=== PATIENT | female | born 1975 | race Two or more races ===

== ENCOUNTER 2024-11-03 16:10 | Emergency (ER) | payer MEDICAID, SELFPAY ==
[2024-11-03 16:24] VITALS: BP 136/81; PULSE 78; RESP 18; TEMP 37.2; O2SAT 97
--- NOTE | 2024-11-03 16:35 | XR_ITS ---
Examination: Lumbar spine 2 views TECHNIQUE: AP lateral lumbar spine 2 views Date and time: November 03, 2024 1649 hours INDICATIONS: Low back pain beginning one week ago. FINDINGS: Suspicious for grade 1 spondylolisthesis L5 on S1 Moderate disc narrowing L5-S1 No lumbar fracture IMPRESSION: Recommend oblique films follow-up to confirm grade 1 spondylolisthesis L5 on S1
--- NOTE | 2024-11-03 16:35 | XR_ITS ---
Examination: CT abdomen and pelvis without contrast. Coronal 3-D reconstructions. Sagittal 2-D reconstructions. Date and time of exam:November 03, 2024 1852 hours INDICATIONS: Onset left-sided abdominal pain beginning one week ago CTDI: vol (mGy): 11 DLP: (mGycm): 682 Technique: Axial images of the abdomen have been obtained, 3 mm slice thickness Intravenous contrast material has not been administered. Low dose protocols were performed. One or more of the following dose reduction techniques were used; automated exposure control, adjustment of the mA and/or KV according to patient size, use of iterative reconstruction technique. Findings: Patient's Absent gallbladder No pancreatic or adrenal mass No renal or ureteral calculi, no hydronephrosis Aorta normal size No pericecal inflammatory change No diverticulitis Hypodense right posterior pelvic partially cystic mass 4.9 cm Urinary bladder is intact IMPRESSION: No renal or ureteral calculi, no hydronephrosis No CT findings of appendicitis or bowel obstruction Posterior hypodense right pelvic mass, 4.9 cm, recommend pelvic sonography follow-up Grade 1 spondylolisthesis L5 on S1
--- NOTE | 2024-11-03 16:36 | PD.EDRME ---
Rapid Medical Screening Exam RME Arrival date/time: 11/03/24 16:10 49-year-old female with no known medical history presents to the emergency room with a chief complaint of lumbar back pain, dysuria, left-sided flank pain x 1 week I have greeted and performed a focused initial assessment of this patient. A comprehensive ED assessment and evaluation of the patient, analysis of all test results, and completion of the medical decision making process will be conducted by additional ED providers. Chief Complaint: Back Pain/Injury Time Seen by Provider: 11/03/24 16:19 Vital signs: Vital Signs Temperature 99.0 F 11/03/24 16:24 Pulse Rate 78 11/03/24 16:24 Respiratory Rate 18 11/03/24 16:24 Blood Pressure 136/81 H 11/03/24 16:24 Pulse Oximetry (%) 97 11/03/24 16:24 Oxygen Delivery Method Room Air 11/03/24 16:24 Vital signs reviewed by provider: Yes
[2024-11-03 17:18] LABS: Collection Type, Urine Clean Catch; RBC,Urine 0 /hpf (0-3)
[2024-11-03 17:38] LABS: Bilirubin,Urine Negative (Negative); Blood,Urine Negative (Negative); Clarity,Urine Clear (Clear/Hazy); Color,Urine Colorless (Lt Yel-Yel); Culture Indicated,Urine Not Indicated; Glucose, Urine Negative (Negative); Ketones,Urine Negative (Negative); Leukocyte Esterase,Urine Negative (Negative); Nitrite,Urine Negative (Negative); PH,Urine 6.5 (5.0-7.0); Protein,Urine Negative (Neg - Trace); Specific Gravity,Urine 1.011 (1.001-1.035); Squamous Epithelial Cell,Urine 2 /hpf (0-5); Urobilinogen,Urine Negative mg/dL (0.0-1.0); WBC,Urine 1 /hpf (0-5)
[2024-11-03 17:49] LABS: HCG Qualitative,Urine Negative
[2024-11-03 18:16] LABS: Basophils # (Auto) 0.1 Thou/mm3 (0.0-0.2); Basophils % (Auto) 1 % (0-2.5); Eosinophils # (Auto) 0.2 Thou/mm3 (0.0-0.5); Eosinophils % (Auto) 2 % (0-10); Hematocrit 35.8 % (36.0-46.0); Hemoglobin 11.5 g/dL (12.0-16.0); Immature Granulocytes Auto 0.04 Thou/mm3 (0.00-0.00); Lymphocytes # (Auto) 2.9 Thou/mm3 (1.0-4.8); Lymphocytes % (Auto) 31 % (10-50); Mean Corpuscular HGB Conc 32.1 g/dl (31.0-37.0); Mean Corpuscular Hemoglobin 27.8 pg (25.0-35.0); Mean Corpuscular Volume 87 fL (80-100); Monocytes # (Auto) 0.6 Thou/mm3 (0.0-0.8); Monocytes % (Auto) 6 % (0-12); Neutrophils # (Auto) 5.6 Thou/mm3 (1.8-7.7); Neutrophils % (Auto) 60 % (37-80); Nucleated Red Blood Cell # 0.00 Thou/mm3 (0.00-0.00); Nucleated Red Blood Cell % 0 /100 WBC (0); Platelet Count 293 Thou/mm3 (140-440); RDW Standard Deviation 43.5 fL (36.4-46.3); Red Blood Count 4.14 Miln/mm3 (4.00-5.20); White Blood Count 9.4 Thou/mm3 (3.6-11.0)
[2024-11-03 18:29] LABS: Alanine Aminotransferase 15 U/L (10-49); Albumin, Serum 4.6 gm/dL (3.5-5.0); Albumin/Globulin Ratio 1.6 (1.2-2.2); Alkaline Phosphatase 146 U/L (46-116); Anion Gap 9 (7-16); Aspartate Amino Transferase 21 U/L (0-34); BUN/Creatinine Ratio 15 Ratio (12-20); Bilirubin,Total 0.2 mg/dL (0.3-1.2); Blood Urea Nitrogen 12 mg/dL (9-23); Calcium 9.8 mg/dL (8.3-10.6); Calcium (Corrected) 9.8 mg/dL (8.5-10.1); Carbon Dioxide 25.0 mMol/L (20.0-31.0); Chloride 106 mMol/L (98-107); Creatinine (Component) 0.8 mg/dL (0.6-1.3); Globulin 2.9 gm/dL (2.3-3.5); Glucose 118 mg/dL (74-106); Lipase 50 U/L (12-53); Osmolality,Calculated 280 (275-295); Potassium 3.6 mMol/L (3.4-5.1); Sodium 140 mMol/L (136-145); Total Protein 7.5 gm/dL (5.7-8.2); eGFR > 60 See Note
--- NOTE | 2024-11-03 19:15 | PD.EDBACK ---
ED Back Injury Pain RME/HPI General Chief Complaint: Back Pain/Injury Stated Complaint: LEFT FLANK PAIN Time Seen by Provider: 11/03/24 16:19 Arrival date/time: 11/03/24 16:10 RME / HPI RME / HPI Narrative: 11/03/24 16:10 49-year-old female with no known medical history presents to the emergency room with a chief complaint of lumbar back pain, dysuria, left-sided flank pain x 1 week I have greeted and performed a focused initial assessment of this patient. A comprehensive ED assessment and evaluation of the patient, analysis of all test results, and completion of the medical decision making process will be conducted by additional ED providers. See [facility] for HPI documentation. Related Data Previous Rx's ?Medication ?Instructions ?Recorded ibuprofen 800 mg tablet 800 mg PO TID PRN pain #30 tabs 10/21/23 acetaminophen 300 mg-codeine 30 mg 2 tab PO Q8H PRN pain #20 tabs 11/03/24 tablet cyclobenzaprine 10 mg tablet 10 mg PO Q8H PRN muscle spasm #30 11/03/24 tabs ibuprofen 800 mg tablet 800 mg PO Q8H PRN pain #30 tabs 11/03/24 lidocaine 5 % topical patch 2 patch topical QDAY PRN pain #30 11/03/24 (Lidoderm) ea Allergies Allergy/AdvReac Type Severity Reaction Status Date / Time No Known Allergies Allergy Verified 02/08/18 11:38 Review of Systems Review of Systems Systems Reviewed: All systems reviewed, normal except as documented Past Medical History Social History SMOKING STATUS: Never smoker ED Exam Narrative Physical exam: See [facility] for physical exam documentation. Course Quality Measures none Orders Category Date Time Status CT abdomen pelvis wo con Stat Exams 11/03/24 16:35 Completed XR lumbar spine 2-3V Stat Exams 11/03/24 16:35 Completed CBC Stat Lab 11/03/24 17:45 Completed CMP [Comprehensive Metabolic Panel] Stat Lab 11/03/24 17:45 Completed HCG Qualitative,Urine Stat Lab 11/03/24 17:08 Completed Lipase Stat Lab 11/03/24 17:45 Completed UA, C/S IF [Urinalysis, C/S if Indicated] Stat Lab 11/03/24 17:08 Completed ACETAMINOPHEN w/COD 300-30 [Tylenol w/Cod #3] Med 11/03/24 20:30 Discontinued 2 tab PO X1 ONE Vital Signs Vital signs: Vital Signs Temperature 99.0 F 11/03/24 16:24 Pulse Rate 78 11/03/24 16:24 Respiratory Rate 18 11/03/24 16:24 Blood Pressure 136/81 H 11/03/24 16:24 Pulse Oximetry (%) 97 11/03/24 16:24 Oxygen Delivery Method Room Air 11/03/24 16:24 Back Pain / Injury MDM Narrative MDM Narrative:: This section includes all my notes and documentations, including HPI, PE, and ED course. Phillip Monique MD HPI: 49-year-old female here with several days of left-sided low back pain radiating into the left leg. She reports sharp and stabbing and burning pain. No paralysis. No loss of control of the bladder or bowels. No saddle numbness. No other complaints. ROS: All negative except as documented in HPI. Physical Exam: General: Alert and oriented. Appears uncomfortable. Eyes: Conjunctivae and lids clear. ENT: No nasal congestion. Neck: Supple. Heart: RRR. Lungs: No respiratory distress. Good air movement. No rhonchi, wheezing, rales. Abdomen: Soft and nontender. Normal bowel sounds. No distension. No rebound or guarding. Back: Equivocal lumbar spinal tenderness. Skin: Warm and dry. Neuro: Alert and oriented X 3. No peripheral motor deficits. I reviewed all diagnostic test results. My interpretation of the lumbar spine x-ray is suspicious for grade 1 spondylolisthesis L5 on S1. My review of the CT abdomen pelvis report is: - Grade 1 spondylolisthesis L5 on S1 Blood tests and urine tests are unremarkable. At this point, diagnoses include lumbar spinal stenosis. Treatment here included two Tylenol #3. Some improvement noted. Recommended outpatient management. Based on my best medical judgment, made decision no further evaluation or treatment indicated at this time. Patient understands and agrees to the discharge instructions customized and printed, see below. Discharge Instructions from Dr. Monique: --After evaluation, your pain is due to sciatica (same as Lumbar Radiculopathy or Spinal Stenosis) where pinched nerve is causing your pain. See attached handout. --This condition is difficult because normal pain medications don?t work very well on nerve pain. --Despite the pain, try to resume your normal chores and activities.? Because inactivity is terrible for this condition.? And activity won?t make your condition worse.? Use a cane of stick in your right hand to help stand and walk.? --Use Ibuprofen and Cyclobenzaprine and Tylenol with codeine and lidocaine patches as needed.? Don't expect the pain to go away completely, hoping to take the edge off.?? --When resting and sleeping, try right sided position (with your knees to your chest and bending forward).? This can take some pressure off the nerve and help your pain. --Apply ice or heat if helpful. --See a private doctor (outside the ER) on 11/05/2024 for further care. Ask to help you get more care not available here in the ER.? Such as MRI imaging, physical therapy, and referrals to see specialists.? Some choose to have surgery for this condition. But you need to have MRI imaging to confirm the diagnosis and assess the severity to get the best treatments. --Seek immediate medical care with paralysis in your foot, losing control of your bladder or bowels, saddle numbness (anal numbness), or with any concerns.?? Discharge Instructions from Dr. Monique: --After evaluation, your pain is due to sciatica (same as Lumbar Radiculopathy or Spinal Stenosis) where pinched nerve is causing your pain. See attached handout. --This condition is difficult because normal pain medications don?t work very well on nerve pain. --Despite the pain, try to resume your normal chores and activities.? Because inactivity is terrible for this condition.? And activity won?t make your condition worse.? Use a cane of stick in your right hand to help stand and walk.? --Use Ibuprofen and Cyclobenzaprine and Tylenol with codeine and lidocaine patches as needed.? Don't expect the pain to go away completely, hoping to take the edge off.?? --When resting and sleeping, try right sided position (with your knees to your chest and bending forward).? This can take some pressure off the nerve and help your pain. --Apply ice or heat if helpful. --See a private doctor (outside the ER) on 11/05/2024 for further care. Ask to help you get more care not available here in the ER.? Such as MRI imaging, physical therapy, and referrals to see specialists.? Some choose to have surgery for this condition. But you need to have MRI imaging to confirm the diagnosis and assess the severity to get the best treatments. --Seek immediate medical care with paralysis in your foot, losing control of your bladder or bowels, saddle numbness (anal numbness), or with any concerns.?? Phillip Monique MD Patient data External records reviewed:: [facility] previous records (Per chart review, patient was seen here on 10/21/23 for bulging lumbar disc.) Clinical information provided by:: patient Social determinants that could affect healthcare access:: none Patient has the following chronic illnesses:: none How is presenting disease/condition affected by chronic disease/condition?: no chronic disease Evaluation data The following diagnostics were reviewed and interpreted by me:: lab results and radiology exam(s) Lab and/or radiology exams considered but not ordered:: none Interpretation Summary: I reviewed all diagnostic test results. My interpretation of the lumbar spine x-ray is suspicious for grade 1 spondylolisthesis L5 on S1. My review of the CT abdomen pelvis report is: - Grade 1 spondylolisthesis L5 on S1 Blood tests and urine tests are unremarkable. Medications / Prescriptions Medications or Prescriptions considered but not ordered:: None Medication administrations:: Medication Administration History Discontinued Medications Acetaminophen/Codeine Phosphate (Acetaminophen W/Cod 300-30 Tablet) 2 tab PO X1 ONE Stop: 11/03/24 20:31 two Tylenol #3 Consultations Consultation(s) initiated? (list below): No Diagnosis Differential diagnosis back pain/injury: lumbar radiculopathy, sciatica, strain of lumbar region, renal colic and pyelonephritis Most likely diagnosis given after review of the tests above:: With significant improvement and no condition needing emergent intervention, there was no indication for admission. Admission Indicated Admission indicated?: not indicated Admission Request Was there a request for admission?: No Disposition Plan Disposition Plan: Discharge Discharge Attestation Discharge Attestation: The patient and all family members were given an opportunity to ask questions and understood the discharge instructions. Discharge instructions specifically effects, indications for sooner follow up or return to the emergency department, and the expected course of current diagnosis. Patient condition: Stable Discharge Plan Plan Patient Disposition: HOME (Self Care) Prescriptions/Referrals Prescriptions/Med Rec: New cyclobenzaprine 10 mg tablet 10 mg PO Q8H PRN (Reason: muscle spasm) Qty: 30 0RF ibuprofen 800 mg tablet 800 mg PO Q8H PRN (Reason: pain) Qty: 30 0RF acetaminophen-codeine 300-30 mg tablet 2 tab PO Q8H MDD 6 PRN (Reason: pain) Qty: 20 0RF lidocaine [Lidoderm] 5 % adhesive patch,medicated 2 patch topical QDAY PRN (Reason: pain) Qty: 30 0RF Rx Instructions: leave on most painful area for up to 12 hrs No Action ibuprofen 800 mg tablet 800 mg PO TID PRN (Reason: pain) Qty: 30 0RF Referrals: Samson Bledsoe MD [Primary Care Provider] - In 1 week Problem List Clinical Impression: Pinched nerve Patient/Caregiver Discharge Instructions Discharge Activity: activity as tolerated Education Materials: ED Sciatica Additional Instructions: Discharge Instructions from Dr. Monique: --After evaluation, your pain is due to sciatica (same as Lumbar Radiculopathy or Spinal Stenosis) where pinched nerve is causing your pain. See attached handout. --This condition is difficult because normal pain medications don?t work very well on nerve pain. --Despite the pain, try to resume your normal chores and activities.? Because inactivity is terrible for this condition.? And activity won?t make your condition worse.? Use a cane of stick in your right hand to help stand and walk.? --Use Ibuprofen and Cyclobenzaprine and Tylenol with codeine and lidocaine patches as needed.? Don't expect the pain to go away completely, hoping to take the edge off.?? --When resting and sleeping, try right sided position (with your knees to your chest and bending forward).? This can take some pressure off the nerve and help your pain. --Apply ice or heat if helpful. --See a private doctor (outside the ER) on 11/05/2024 for further care. Ask to help you get more care not available here in the ER.? Such as MRI imaging, physical therapy, and referrals to see specialists.? Some choose to have surgery for this condition. But you need to have MRI imaging to confirm the diagnosis and assess the severity to get the best treatments. --Seek immediate medical care with paralysis in your foot, losing control of your bladder or bowels, saddle numbness (anal numbness), or with any concerns.?? Discharge Instructions from Dr. Monique: --After evaluation, your pain is due to sciatica (same as Lumbar Radiculopathy or Spinal Stenosis) where pinched nerve is causing your pain. See attached handout. --This condition is difficult because normal pain medications don?t work very well on nerve pain. --Despite the pain, try to resume your normal chores and activities.? Because inactivity is terrible for this condition.? And activity won?t make your condition worse.? Use a cane of stick in your right hand to help stand and walk.? --Use Ibuprofen and Cyclobenzaprine and Tylenol with codeine and lidocaine patches as needed.? Don't expect the pain to go away completely, hoping to take the edge off.?? --When resting and sleeping, try right sided position (with your knees to your chest and bending forward).? This can take some pressure off the nerve and help your pain. --Apply ice or heat if helpful. --See a private doctor (outside the ER) on 11/05/2024 for further care. Ask to help you get more care not available here in the ER.? Such as MRI imaging, physical therapy, and referrals to see specialists.? Some choose to have surgery for this condition. But you need to have MRI imaging to confirm the diagnosis and assess the severity to get the best treatments. --Seek immediate medical care with paralysis in your foot, losing control of your bladder or bowels, saddle numbness (anal numbness), or with any concerns.?? Print Language: French Stand Alone Forms: [employer] Award Info., Patient Portal Info Letter
[2024-11-03] MEDS: ACETAMINOPHEN w/COD 300-30 TABLET 2 TAB PO (20:44)
[2024-11-03 20:46] VITALS: BP 128/72; PULSE 72; RESP 18; TEMP 36.8; O2SAT 98
== END 2024-11-03 20:47 | disposition home or self-care (01) ==
PROVIDERS: Nurse Practitioner Family; Emergency Provider Emergency Medicine; PCP Family Medicine
DX: M43.17 Spondylolisthesis, lumbosacral region (principal); G58.8 Other specified mononeuropathies
CPT/HCPCS: 36415; 72100; 74176; 80053; 81001; 81025; 83690; 85025; 99283; A9270